=== PATIENT | female | born 1935 | race Caucasian/White ===

== ENCOUNTER 2017-11-21 16:31 | Inpatient (IN) ==
[2017-11-21] MEDS ORDERED: ORPHENADRINE 60 MG/2 ML VIAL IV STA (17:05)
[2017-11-21] MEDS ORDERED: ONDANSETRON 4 MG/2 ML VIAL IV STA (17:05)
[2017-11-21] MEDS ORDERED: KETOROLAC 30 MG/1 ML VIAL IV STA (17:05)
[2017-11-21 17:55] LABS: Basophils # 0.1 10*3/uL (0.0-0.2); Basophils % 0.5 % (0.0-0.8); Eosinophils # 0.1 10*3/uL (0.0-0.87); Eosinophils % 0.5 % (0.00-10.9); Hematocrit 34.4 VOL% (35.7-47.0); Hemoglobin 11.7 GM/DL (12.0-16.0); Immature Granulocytes % 0.4 %; Immature Granulocytes Absolute 0.06 #; Lymphocytes # 1.8 10*3/uL (1.4-4.0); Lymphocytes % 11.9 % (21.3-54.2); Mean Corpuscular Hemoglobin 31 PG (27-34); Mean Corpuscular Volume 90.1 FL (87-102); Mean Platelet Volume 9.5 FL (9.6-12.0); Monocytes # 0.6 10*3/uL (0.11-0.8); Monocytes % 4.2 % (1.7-12.7); Neutrophils # 12.4 10*3/uL (1.4-7.4); Neutrophils % 82.5 % (38.7-73.9); Platelet Count 235 T/CUMM (130-400); Red Blood Count 3.82 MC/CUMM (3.8-5.5); Red Cell Distribution Width 13.2 % (9.3-17.3)
[2017-11-21 18:08] LABS: PT Patient Result 10.2 SECS; Partial Thromboplastin Time 22.9 SECS (0-40)
[2017-11-21 18:34] LABS: Alanine Aminotransferase 54 U/L (13-56); Albumin 3.5 G/DL (3.4-5.0); Alkaline Phosphatase 87 U/L (45-117); Aspartate Amino Transferase 141 U/L (0-37); Blood Urea Nitrogen 18 MG/DL (7-18); CKMB % 4.6 %; Calcium 8.6 MG/DL (8.5-10.1); Glucose 146 MG/DL (74-106); Potassium 3.7 MMOL/L (3.5-5.1); Sodium 136 MMOL/L (136-145); Troponin I Only < 0.015 NG/ML (0.00-0.045)
[2017-11-21 19:01] LABS: Apearance,Urine CLEAR (Clear); Bilirubin,Urine Negative (Negative); Blood, Urine Small mg/dL (Negative); Glucose,Urine (UA) Negative (Negative); Ketones,Urine Negative (Negative); Mucus,Urine Occasional /LPF (Occasional); Nitrite,Urine Negative (Negative); Protein,Urine Negative; RBC,Urine 6 /HPF (0-4); Urine Color Yellow (Yellow); Urine Specific Gravity 1.015 (1.001-1.035); WBC,Urine <1 /HPF (0-6)
[2017-11-21] MEDS ORDERED: ONDANSETRON 4 MG/2 ML VIAL IV PRN (19:56)
[2017-11-21] MEDS ORDERED: ZALEPLON 5 MG CAPSULE PO PRN (19:56)
[2017-11-21] MEDS ORDERED: MORPHINE 4 MG/1 ML VIAL IV PRN (19:56)
[2017-11-21] MEDS ORDERED: BISACODYL 5 MG TABLET PO PRN (19:56)
[2017-11-21] MEDS ORDERED: FUROSEMIDE 40 MG/4 ML VIAL IV ONE (19:57)
[2017-11-21] MEDS ORDERED: KETOROLAC 30 MG/1 ML VIAL IV PRN (20:00)
[2017-11-21] MEDS ORDERED: ALBUTEROL/IPRATROPIUM 3 ML NEB RESP TX PRN (20:03)
[2017-11-21] MEDS ORDERED: METOCLOPRAMIDE 10 MG/2 ML VIAL IV STA (20:19)
[2017-11-21] MEDS ORDERED: METOCLOPRAMIDE 10 MG/2 ML VIAL IV PRN (20:19)
[2017-11-21] MEDS: ENOXAPARIN 40 MG/0.4 ML SYRINGE SUBCUT SCH (20:30)
[2017-11-21 22:52] LABS: Troponin I Only < 0.015 NG/ML (0.00-0.045)
[2017-11-22 02:27] LABS: Troponin I Only 0.033 NG/ML (0.00-0.045)
[2017-11-22 02:34] LABS: Calcium 8.3 MG/DL (8.5-10.1); Risk Ratio 5.12; Thyroid Stimulating Hormone 1.98 uIU/ml (0.358-3.74); VLDL CHOLESTEROL 18.6 MG/DL
[2017-11-22] MEDS ORDERED: MAGNESIUM SULF RIDER 2 GM in PREMIX 1 EACH IV PRN (02:45)
[2017-11-22] MEDS ORDERED: MAGNESIUM SULF RIDER 4 GM in PREMIX 1 EACH IV PRN (02:45)
[2017-11-22] MEDS: POTASSIUM CHLORIDE 20 MEQ TABLET PO PRN ×3 (03:48→08:25)
[2017-11-22] MEDS: PANTOPRAZOLE 40 MG TABLET PO SCH (08:25)
[2017-11-22] MEDS: ATENOLOL 50 MG TABLET PO SCH (08:26)
[2017-11-22] MEDS ORDERED: FUROSEMIDE 20 MG/2 ML VIAL IV SCH (09:00)
[2017-11-22 09:06] LABS: Troponin I Only 0.036 NG/ML (0.00-0.045)
[2017-11-22] MEDS ORDERED: ASPIRIN 325 MG TABLET PO ONE (09:35)
[2017-11-22] MEDS ORDERED: MAGNESIUM SULFATE 1 GM/2 ML VIAL IM ONE (09:37)
[2017-11-22] MEDS: ATORVASTATIN 80 MG TABLET PO SCH (10:50)
[2017-11-22] MEDS: POTASSIUM CHLORIDE 20 MEQ/15 ML UDCUP PO SCH ×3 (10:50→18:03)
[2017-11-22] MEDS: CITALOPRAM 20 MG TABLET PO SCH (11:05)
[2017-11-22] MEDS: CEFUROXIME INJ 1,500 MG in SYRINGE 1 EACH IV SCH (16:06)
[2017-11-22] MEDS: ENOXAPARIN 40 MG/0.4 ML SYRINGE SUBCUT SCH (20:27)
[2017-11-23] MEDS: CEFUROXIME INJ 1,500 MG in SYRINGE 1 EACH IV SCH ×2 (02:17→18:00)
[2017-11-23 05:34] LABS: Calcium 8.5 MG/DL (8.5-10.1); Osmolality,Calculated 270.5 MOS/KG (273-304); Potassium 5.7 MMOL/L (3.5-5.1)
[2017-11-23] MEDS: ATORVASTATIN 80 MG TABLET PO SCH (09:56)
[2017-11-23] MEDS: ATENOLOL 50 MG TABLET PO SCH (09:57)
[2017-11-23] MEDS: PANTOPRAZOLE 40 MG TABLET PO SCH (09:57)
[2017-11-23] MEDS: ASPIRIN EC 81 MG TABLET PO SCH (09:57)
[2017-11-23] MEDS: CITALOPRAM 20 MG TABLET PO SCH (18:04)
[2017-11-23] MEDS: SODIUM CHLORIDE 0.9% 1,000 ML IV SCH ×2 (20:44→22:45)
[2017-11-23] MEDS: ENOXAPARIN 40 MG/0.4 ML SYRINGE SUBCUT SCH (20:44)
[2017-11-24] MEDS: CEFUROXIME INJ 1,500 MG in SYRINGE 1 EACH IV SCH ×2 (02:47→15:32)
[2017-11-24 06:12] LABS: Calcium 7.9 MG/DL (8.5-10.1); Osmolality,Calculated 271.2 MOS/KG (273-304); Potassium 4.8 MMOL/L (3.5-5.1)
[2017-11-24] MEDS: ATENOLOL 50 MG TABLET PO SCH (10:16)
[2017-11-24] MEDS: ASPIRIN EC 81 MG TABLET PO SCH (10:16)
[2017-11-24] MEDS: ATORVASTATIN 80 MG TABLET PO SCH (10:16)
[2017-11-24] MEDS: PANTOPRAZOLE 40 MG TABLET PO SCH (10:16)
[2017-11-24] MEDS: CITALOPRAM 20 MG TABLET PO SCH (15:35)
[2017-11-24] MEDS: ENOXAPARIN 40 MG/0.4 ML SYRINGE SUBCUT SCH (21:19)
[2017-11-25] MEDS: CEFUROXIME INJ 1,500 MG in SYRINGE 1 EACH IV SCH ×2 (03:32→15:22)
[2017-11-25 03:55] LABS: Basophils % 0.4 % (0.0-0.8); Eosinophils # 0.2 10*3/uL (0.0-0.87); Eosinophils % 2.1 % (0.00-10.9); Hematocrit 33.2 VOL% (35.7-47.0); Hemoglobin 10.7 GM/DL (12.0-16.0); Immature Granulocytes % 0.4 %; Immature Granulocytes Absolute 0.03 #; Lymphocytes # 0.7 10*3/uL (1.4-4.0); Lymphocytes % 8.9 % (21.3-54.2); Mean Corpuscular HGB Conc 32.2 GM/DL (32-36); Mean Corpuscular Hemoglobin 30 PG (27-34); Mean Corpuscular Volume 93.5 FL (87-102); Mean Platelet Volume 10.5 FL (9.6-12.0); Monocytes # 0.4 10*3/uL (0.11-0.8); Monocytes % 5.2 % (1.7-12.7); Platelet Count 186 T/CUMM (130-400); Red Blood Count 3.55 MC/CUMM (3.8-5.5); Red Cell Distribution Width 13.7 % (9.3-17.3); White Blood Count 7.3 T/CUMM (4-12)
[2017-11-25 05:07] LABS: Band Neutrophils 1 % (0-10); Eosinophils 3 % (0-10); Lymphocytes 7 % (20-55); Ovalocytes Slight; Platelet Estimate Normal; Segmented Neutrophils 87 % (50-85); Total Cells Counted 100
[2017-11-25] MEDS: ATENOLOL 50 MG TABLET PO SCH (10:22)
[2017-11-25] MEDS: ASPIRIN EC 81 MG TABLET PO SCH (10:23)
[2017-11-25] MEDS: ATORVASTATIN 80 MG TABLET PO SCH (10:23)
[2017-11-25] MEDS: PANTOPRAZOLE 40 MG TABLET PO SCH (10:24)
[2017-11-25] MEDS: CITALOPRAM 20 MG TABLET PO SCH (13:00)
[2017-11-25] MEDS: ENOXAPARIN 40 MG/0.4 ML SYRINGE SUBCUT SCH (20:43)
[2017-11-26] MEDS: CEFUROXIME INJ 1,500 MG in SYRINGE 1 EACH IV SCH (03:56)
[2017-11-26] MEDS: ASPIRIN EC 81 MG TABLET PO SCH (08:50)
[2017-11-26] MEDS: ATENOLOL 50 MG TABLET PO SCH (08:50)
[2017-11-26] MEDS: PANTOPRAZOLE 40 MG TABLET PO SCH (08:50)
[2017-11-26] MEDS: ATORVASTATIN 80 MG TABLET PO SCH (08:50)
[2017-11-26] MEDS: CITALOPRAM 20 MG TABLET PO SCH (12:27)
[2017-11-26] MEDS: AMPICILLIN/SULBACTAM 3,000 MG in SODIUM CHLORIDE 0.9% 100 ML IV SCH ×2 (14:08→20:17)
[2017-11-26] MEDS: ENOXAPARIN 40 MG/0.4 ML SYRINGE SUBCUT SCH (20:17)
[2017-11-26] MEDS: ACETAMINOPHEN 325 MG TABLET PO PRN (23:18)
[2017-11-27] MEDS: AMPICILLIN/SULBACTAM 3,000 MG in SODIUM CHLORIDE 0.9% 100 ML IV SCH ×3 (02:00→14:46)
[2017-11-27 05:01] LABS: Basophils # 0.1 10*3/uL (0.0-0.2); Basophils % 0.8 % (0.0-0.8); Eosinophils # 0.2 10*3/uL (0.0-0.87); Eosinophils % 2.3 % (0.00-10.9); Hematocrit 32.4 VOL% (35.7-47.0); Immature Granulocytes % 0.6 %; Immature Granulocytes Absolute 0.04 #; Lymphocytes # 1.5 10*3/uL (1.4-4.0); Lymphocytes % 21.3 % (21.3-54.2); Mean Corpuscular Hemoglobin 31 PG (27-34); Mean Platelet Volume 10.1 FL (9.6-12.0); Monocytes # 0.5 10*3/uL (0.11-0.8); Monocytes % 7.6 % (1.7-12.7); Neutrophils # 4.8 10*3/uL (1.4-7.4); Neutrophils % 67.4 % (38.7-73.9); Platelet Count 202 T/CUMM (130-400); Red Cell Distribution Width 13.5 % (9.3-17.3); White Blood Count 7.1 T/CUMM (4-12)
[2017-11-27 05:29] LABS: Calcium 8.8 MG/DL (8.5-10.1); Potassium 3.9 MMOL/L (3.5-5.1)
[2017-11-27 05:30] LABS: Band Neutrophils 3 % (0-10); Eosinophils 1 % (0-10); Lymphocytes 22 % (20-55); Segmented Neutrophils 70 % (50-85); Total Cells Counted 100
[2017-11-27 05:31] LABS: Hypochromasia Slight; Microcytosis Slight; Ovalocytes Slight
[2017-11-27 05:38] LABS: Atypical Lymphocytes Few
[2017-11-27] MEDS: ATENOLOL 50 MG TABLET PO SCH (08:36)
[2017-11-27] MEDS: ATORVASTATIN 80 MG TABLET PO SCH (08:36)
[2017-11-27] MEDS: ASPIRIN EC 81 MG TABLET PO SCH (08:36)
[2017-11-27] MEDS: PANTOPRAZOLE 40 MG TABLET PO SCH (08:36)
[2017-11-27] MEDS ORDERED: MAGNESIUM SULF RIDER 4 GM in PREMIX 1 EACH IV PRN (11:05)
[2017-11-27] MEDS ORDERED: MAGNESIUM SULF RIDER 2 GM in PREMIX 1 EACH IV PRN (11:05)
[2017-11-27] MEDS: CITALOPRAM 20 MG TABLET PO SCH (11:24)
[2017-11-27] MEDS: POTASSIUM CHLORIDE 20 MEQ TABLET PO PRN (12:21)
[2017-11-27] MEDS: ACETAMINOPHEN 325 MG TABLET PO PRN (18:59)
[2017-11-27] MEDS: cefTRIAXone 2,000 MG in SYRINGE 1 EACH IV SCH (19:00)
[2017-11-27] MEDS: ENOXAPARIN 40 MG/0.4 ML SYRINGE SUBCUT SCH (21:40)
[2017-11-28 04:58] LABS: Basophils # 0.1 10*3/uL (0.0-0.2); Basophils % 0.7 % (0.0-0.8); Eosinophils # 0.2 10*3/uL (0.0-0.87); Eosinophils % 2.4 % (0.00-10.9); Hematocrit 33.1 VOL% (35.7-47.0); Hemoglobin 11.2 GM/DL (12.0-16.0); Immature Granulocytes % 0.9 %; Immature Granulocytes Absolute 0.07 #; Lymphocytes # 1.9 10*3/uL (1.4-4.0); Lymphocytes % 23.2 % (21.3-54.2); Mean Corpuscular HGB Conc 33.8 GM/DL (32-36); Mean Corpuscular Hemoglobin 31 PG (27-34); Mean Corpuscular Volume 90.7 FL (87-102); Mean Platelet Volume 10.4 FL (9.6-12.0); Monocytes # 0.7 10*3/uL (0.11-0.8); Monocytes % 8.1 % (1.7-12.7); Neutrophils # 5.3 10*3/uL (1.4-7.4); Neutrophils % 64.7 % (38.7-73.9); Platelet Count 237 T/CUMM (130-400); Red Blood Count 3.65 MC/CUMM (3.8-5.5); Red Cell Distribution Width 13.5 % (9.3-17.3); White Blood Count 8.2 T/CUMM (4-12)
[2017-11-28 05:34] LABS: Hypochromasia Slight; Microcytosis Slight
[2017-11-28 05:36] LABS: Calcium 8.8 MG/DL (8.5-10.1); Potassium 3.9 MMOL/L (3.5-5.1)
[2017-11-28] MEDS: ACETAMINOPHEN 325 MG TABLET PO PRN (10:28)
[2017-11-28] MEDS: ATENOLOL 50 MG TABLET PO SCH (10:29)
[2017-11-28] MEDS: ATORVASTATIN 80 MG TABLET PO SCH (10:29)
[2017-11-28] MEDS: ASPIRIN EC 81 MG TABLET PO SCH (10:29)
[2017-11-28] MEDS: PANTOPRAZOLE 40 MG TABLET PO SCH (10:30)
[2017-11-28] MEDS: CITALOPRAM 20 MG TABLET PO SCH (13:20)
[2017-11-28] MEDS: cefTRIAXone 2,000 MG in SYRINGE 1 EACH IV SCH (18:25)
[2017-11-28] MEDS: ENOXAPARIN 40 MG/0.4 ML SYRINGE SUBCUT SCH (21:28)
[2017-11-29] MEDS: ACETAMINOPHEN 325 MG TABLET PO PRN ×2 (09:03→17:45)
[2017-11-29] MEDS: ASPIRIN EC 81 MG TABLET PO SCH (09:04)
[2017-11-29] MEDS: ATORVASTATIN 80 MG TABLET PO SCH (09:04)
[2017-11-29] MEDS: PANTOPRAZOLE 40 MG TABLET PO SCH (09:05)
[2017-11-29] MEDS: POTASSIUM CHLORIDE 20 MEQ TABLET PO PRN (09:05)
[2017-11-29] MEDS: ATENOLOL 50 MG TABLET PO SCH (09:05)
[2017-11-29] MEDS: CITALOPRAM 20 MG TABLET PO SCH (12:40)
[2017-11-29] MEDS: cefTRIAXone 2,000 MG in SYRINGE 1 EACH IV SCH (17:19)
[2017-11-29] MEDS: ENOXAPARIN 40 MG/0.4 ML SYRINGE SUBCUT SCH (21:43)
[2017-11-30] MEDS: ATORVASTATIN 80 MG TABLET PO SCH (10:25)
[2017-11-30] MEDS: ATENOLOL 50 MG TABLET PO SCH (10:26)
[2017-11-30] MEDS: ASPIRIN EC 81 MG TABLET PO SCH (10:26)
[2017-11-30] MEDS: PANTOPRAZOLE 40 MG TABLET PO SCH (10:26)
[2017-11-30 12:26] VITALS: BP 130/68
== END 2017-11-30 12:20 | disposition swing bed (61) | DRG 187 ==
LOC: N.ED 16:31 → N.EDINP 19:56 → SUATTDRO 19:56 → N.TELES 21:43
PROVIDERS: ADMIT Internal Medicine; ATTEND Internal Medicine

== ENCOUNTER 2018-06-20 00:56 | Inpatient (IN) ==
[2018-06-20] MEDS ORDERED: ONDANSETRON 4 MG/2 ML VIAL IV STA (01:13)
[2018-06-20] MEDS ORDERED: ASPIRIN 325 MG TABLET PO STA (01:13)
[2018-06-20] MEDS ORDERED: ENOXAPARIN 100 MG/ML SYRINGE SUBCUT STA (01:13)
[2018-06-20] MEDS ORDERED: DILTIAZEM 50 MG/10 ML VIAL IV STA (01:13)
[2018-06-20] MEDS ORDERED: NITROGLYCERIN 2% OINT 1 INCH/GM PACK TOP STA (01:13)
[2018-06-20] MEDS ORDERED: DILTIAZEM 25 MG/5 ML VIAL IV ONE (01:24)
[2018-06-20 01:36] LABS: Basophils % 0.5 % (0.0-0.8); Eosinophils # 0.1 10*3/uL (0.0-0.87); Eosinophils % 1.9 % (0.00-10.9); Hematocrit 35.5 VOL% (35.7-47.0); Hemoglobin 11.4 GM/DL (12.0-16.0); Immature Granulocytes % 0.1 %; Immature Granulocytes Absolute 0.01 #; Lymphocytes # 2.6 10*3/uL (1.4-4.0); Lymphocytes % 34.8 % (21.3-54.2); Mean Corpuscular HGB Conc 32.1 GM/DL (32-36); Mean Corpuscular Hemoglobin 29 PG (27-34); Mean Corpuscular Volume 91.5 FL (87-102); Mean Platelet Volume 10.2 FL (9.6-12.0); Monocytes # 0.5 10*3/uL (0.11-0.8); Monocytes % 6.4 % (1.7-12.7); Neutrophils # 4.2 10*3/uL (1.4-7.4); Neutrophils % 56.3 % (38.7-73.9); Platelet Count 214 T/CUMM (130-400); Red Blood Count 3.88 MC/CUMM (3.8-5.5); Red Cell Distribution Width 14.1 % (9.3-17.3); White Blood Count 7.5 T/CUMM (4-12)
[2018-06-20 01:40] LABS: Apearance,Urine CLEAR (Clear); Bilirubin,Urine Negative (Negative); Blood, Urine Small mg/dL (Negative); Glucose,Urine (UA) Negative (Negative); Ketones,Urine Negative (Negative); Nitrite,Urine Negative (Negative); Protein,Urine Negative; RBC,Urine 2 /HPF (0-4); Squamous Epithelial Cell,Urine Occasional /HPF (0-10); Urine Color Colorless (Yellow); Urine Specific Gravity 1.008 (1.001-1.035); Urine Urobilinogen < 2.0 EU/DL (0.2-1.0); WBC,Urine 1 /HPF (0-6)
[2018-06-20] MEDS: dilTIAZem Drip 125 MG/125 ML PREMIX IV SCH (01:43)
[2018-06-20 01:46] LABS: INR 0.9
[2018-06-20 02:20] LABS: Alanine Aminotransferase 23 U/L (13-56); Albumin 3.6 G/DL (3.4-5.0); Alkaline Phosphatase 60 U/L (45-117); Aspartate Amino Transferase 21 U/L (0-37); Bilirubin,Total < 0.39 MG/DL (0.2-1.0); Blood Urea Nitrogen 24 MG/DL (7-18); Calcium 9.2 MG/DL (8.5-10.1); Glucose 99 MG/DL (74-106); Osmolality,Calculated 280.5 MOS/KG (273-304); Potassium 3.8 MMOL/L (3.5-5.1); Sodium 139 MMOL/L (136-145); Total Protein 7.4 G/DL (6.4-8.3)
[2018-06-20] MEDS ORDERED: MORPHINE 4 MG/1 ML VIAL IV PRN (02:38)
[2018-06-20] MEDS ORDERED: diphenhydrAMINE CAP 25 MG CAPSULE PO PRN (02:38)
[2018-06-20] MEDS ORDERED: ONDANSETRON 4 MG/2 ML VIAL IV PRN (02:38)
[2018-06-20] MEDS ORDERED: ACETAMINOPHEN 325 MG TABLET PO PRN (02:38)
[2018-06-20] MEDS ORDERED: POTASSIUM CHLORIDE 20 MEQ TABLET PO PRN (02:38)
[2018-06-20] MEDS ORDERED: MAGNESIUM SULF RIDER 4 GM in PREMIX 1 EACH IV PRN (02:38)
[2018-06-20] MEDS ORDERED: MAGNESIUM SULF RIDER 2 GM in PREMIX 1 EACH IV PRN (02:38)
[2018-06-20] MEDS ORDERED: dilTIAZem Drip 125 MG/125 ML PREMIX IV SCH (03:00)
[2018-06-20 05:01] LABS: Calcium 8.9 MG/DL (8.5-10.1); Osmolality,Calculated 279.5 MOS/KG (273-304); Potassium 3.6 MMOL/L (3.5-5.1)
[2018-06-20] MEDS: ATENOLOL 50 MG TABLET PO SCH (09:32)
[2018-06-20] MEDS: ASPIRIN EC 81 MG TABLET PO SCH (09:32)
[2018-06-20] MEDS: PANTOPRAZOLE 40 MG TABLET PO SCH (10:24)
[2018-06-20] MEDS: CITALOPRAM 20 MG TABLET PO SCH (11:38)
[2018-06-20] MEDS: ENOXAPARIN 80 MG/0.8 ML SYRINGE SUBCUT SCH ×2 (14:16→22:15)
[2018-06-21 04:14] LABS: Basophils # 0.1 10*3/uL (0.0-0.2); Basophils % 0.8 % (0.0-0.8); Eosinophils # 0.1 10*3/uL (0.0-0.87); Eosinophils % 2.1 % (0.00-10.9); Hematocrit 32.3 VOL% (35.7-47.0); Hemoglobin 10.4 GM/DL (12.0-16.0); Immature Granulocytes % 0.2 %; Immature Granulocytes Absolute 0.01 #; Lymphocytes # 2.6 10*3/uL (1.4-4.0); Mean Corpuscular HGB Conc 32.2 GM/DL (32-36); Mean Corpuscular Hemoglobin 30 PG (27-34); Mean Platelet Volume 10.2 FL (9.6-12.0); Monocytes # 0.4 10*3/uL (0.11-0.8); Monocytes % 5.5 % (1.7-12.7); Neutrophils # 3.4 10*3/uL (1.4-7.4); Neutrophils % 52.4 % (38.7-73.9); Platelet Count 176 T/CUMM (130-400); Red Blood Count 3.51 MC/CUMM (3.8-5.5); White Blood Count 6.5 T/CUMM (4-12)
[2018-06-21 04:50] LABS: Osmolality,Calculated 278.5 MOS/KG (273-304); Potassium 3.9 MMOL/L (3.5-5.1)
[2018-06-21] MEDS: dilTIAZem Drip 125 MG/125 ML PREMIX IV SCH (05:08)
[2018-06-21] MEDS ORDERED: ENOXAPARIN 30 MG/0.3 ML SYRINGE SUBCUT SCH (07:30)
[2018-06-21] MEDS ORDERED: ASPIRIN 325 MG TABLET PO SCH (09:00)
[2018-06-21] MEDS ORDERED: ENOXAPARIN 40 MG/0.4 ML SYRINGE SUBCUT SCH (09:00)
[2018-06-21] MEDS: ASPIRIN EC 81 MG TABLET PO SCH (10:15)
[2018-06-21] MEDS: ATENOLOL 50 MG TABLET PO SCH (10:15)
[2018-06-21] MEDS: PANTOPRAZOLE 40 MG TABLET PO SCH (10:15)
[2018-06-21 12:30] VITALS: BP 153/76
[2018-06-21] MEDS: CITALOPRAM 20 MG TABLET PO SCH (13:25)
[2018-06-21] MEDS ORDERED: DILTIAZEM CD 180 MG CAPSULE PO SCH (21:00)
== END 2018-06-21 14:14 | disposition home health service (06) | DRG 310 ==
LOC: EDBD → EDUNIT# → SUATTDRO → N.ED 00:56 → N.EDINP 02:38 → N.2W 07:49 → N.TELES 12:53
PROVIDERS: ADMIT Internal Medicine; ATTEND Internal Medicine

== ENCOUNTER 2020-04-28 19:05 | Inpatient (IN) ==
[2020-04-28] MEDS ORDERED: DICYCLOMINE 20 MG/2 ML AMP IM ONE (19:36)
[2020-04-28] MEDS ORDERED: ONDANSETRON 4 MG/2 ML VIAL IV STA (19:36)
[2020-04-28] MEDS ORDERED: SODIUM CHLORIDE 0.9% 500 ML IV STA (19:36)
[2020-04-28] MEDS ORDERED: PANTOPRAZOLE 40 MG VIAL IV STA (19:36)
[2020-04-28 19:48] LABS: Basophils # 0.1 10*3/uL (0.0-0.2); Basophils % 0.5 % (0.0-0.8); Eosinophils # 0.1 10*3/uL (0.0-0.87); Eosinophils % 0.9 % (0.00-10.9); Hematocrit 35.4 VOL% (35.7-47.0); Hemoglobin 11.5 GM/DL (12.0-16.0); Immature Granulocytes % 0.4 %; Immature Granulocytes Absolute 0.04 #; Lymphocytes # 1.6 10*3/uL (1.4-4.0); Lymphocytes % 14.9 % (21.3-54.2); Mean Corpuscular HGB Conc 32.5 GM/DL (32-36); Mean Corpuscular Volume 89.2 FL (87-102); Mean Platelet Volume 10.2 FL (9.6-12.0); Monocytes % 4.9 % (1.7-12.7); Neutrophils % 78.4 % (38.7-73.9); Platelet Count 260 T/CUMM (130-400); Red Blood Count 3.97 MC/CUMM (3.8-5.5); Red Cell Distribution Width 14.1 % (9.3-17.3); White Blood Count 10.4 T/CUMM (4-12)
[2020-04-28 19:56] LABS: Alanine Aminotransferase 33 U/L (13-56); Albumin 3.4 G/DL (3.4-5.0); Alkaline Phosphatase 89 U/L (45-117); Amylase 29 U/L (25-115); Aspartate Amino Transferase 97 U/L (0-37); Bilirubin,Total < 0.39 MG/DL (0.2-1.0); Blood Urea Nitrogen 21 MG/DL (7-18); Calcium 8.6 MG/DL (8.5-10.1); Estimated Glom Filtration Rate 52 ML/MIN; Glucose 114 MG/DL (74-106); Osmolality,Calculated 278.7 MOS/KG (273-304); Total Protein 6.5 G/DL (6.4-8.3)
[2020-04-28] MEDS ORDERED: MAGNESIUM SULF RIDER 2 GM in PREMIX 1 EACH IV STA (19:58)
[2020-04-28 20:18] LABS: Bilirubin,Urine Negative (Negative); Blood, Urine Negative (Negative); Glucose,Urine (UA) Negative (Negative); Hyaline Casts,Urine 5 /LPF (0-3); Ketones,Urine Negative (Negative); Mucus,Urine Many /LPF (Occasional); Nitrite,Urine Negative (Negative); Protein,Urine 30 MG/DL; RBC,Urine 6 /HPF (0-4); Urine Appearance CLEAR (Clear); Urine Color Amber (Yellow); Urine Specific Gravity 1.029 (1.001-1.035); WBC,Urine 1 /HPF (0-6)
[2020-04-28] MEDS ORDERED: BENZOCAINE/BUTAMBEN/TETRACAINE SPRAY 20 GM CAN TOP ONE (22:38)
[2020-04-28] MEDS ORDERED: HYDROmorphone 2 MG/1 ML VIAL IV PRN (23:59)
[2020-04-28] MEDS ORDERED: SODIUM CHLORIDE 0.9% 1,000 ML IV SCH (23:59)
[2020-04-28] MEDS ORDERED: ONDANSETRON 4 MG/2 ML VIAL IV PRN (23:59)
[2020-04-28] MEDS ORDERED: ACETAMINOPHEN 325 MG TABLET PO PRN (23:59)
[2020-04-29] MEDS: PIPERACILLIN/TAZOBACTAM 3,375 MG in SODIUM CHLORIDE 0.9% 100 ML IV SCH ×3 (01:59→16:25)
[2020-04-29 06:02] LABS: Basophils % 0.3 % (0.0-0.8); Eosinophils # 0.1 10*3/uL (0.0-0.87); Eosinophils % 0.8 % (0.00-10.9); Hematocrit 32.6 VOL% (35.7-47.0); Hemoglobin 10.7 GM/DL (12.0-16.0); Immature Granulocytes % 0.3 %; Immature Granulocytes Absolute 0.04 #; Lymphocytes % 7.9 % (21.3-54.2); Mean Corpuscular HGB Conc 32.8 GM/DL (32-36); Mean Corpuscular Volume 89.3 FL (87-102); Mean Platelet Volume 10.2 FL (9.6-12.0); Neutrophils % 85.7 % (38.7-73.9); Platelet Count 230 T/CUMM (130-400); Red Blood Count 3.65 MC/CUMM (3.8-5.5); Red Cell Distribution Width 14.1 % (9.3-17.3); White Blood Count 12.1 T/CUMM (4-12)
[2020-04-29 06:43] LABS: Bilirubin,Total 0.8 MG/DL (0.2-1.0); Calcium 8.7 MG/DL (8.5-10.1); Osmolality,Calculated 275.8 MOS/KG (273-304); Total Protein 6.3 G/DL (6.4-8.3)
[2020-04-29] MEDS ORDERED: ONDANSETRON 4 MG TABLET PO PRN (06:59)
[2020-04-29] MEDS: LORATADINE 10 MG TABLET PO SCH (08:34)
[2020-04-29] MEDS: PANTOPRAZOLE 40 MG TABLET PO SCH (08:34)
[2020-04-29] MEDS: atenoloL 25 MG TABLET PO SCH (08:35)
[2020-04-29] MEDS ORDERED: NON-FORMULARY MEDICATION (Omeprazole 20 MG capsule,delayed release(DR/EC)) PO SCH (09:00)
[2020-04-29] MEDS: CITALOPRAM 20 MG TABLET PO SCH (11:25)
[2020-04-29] MEDS ORDERED: LACTATED RINGERS 1,000 ML IV SCH (12:00)
[2020-04-29] MEDS ORDERED: DILTIAZEM CD 180 MG CAPSULE PO SCH (21:00)
[2020-04-30] MEDS: PIPERACILLIN/TAZOBACTAM 3,375 MG in SODIUM CHLORIDE 0.9% 100 ML IV SCH ×2 (01:10→10:04)
[2020-04-30 06:16] LABS: Basophils % 0.5 % (0.0-0.8); Eosinophils # 0.3 10*3/uL (0.0-0.87); Eosinophils % 3.1 % (0.00-10.9); Hematocrit 32.4 VOL% (35.7-47.0); Hemoglobin 10.4 GM/DL (12.0-16.0); Immature Granulocytes % 0.2 %; Immature Granulocytes Absolute 0.02 #; Lymphocytes # 1.4 10*3/uL (1.4-4.0); Lymphocytes % 17.5 % (21.3-54.2); Mean Corpuscular HGB Conc 32.1 GM/DL (32-36); Mean Platelet Volume 10.1 FL (9.6-12.0); Monocytes % 6.2 % (1.7-12.7); Neutrophils % 72.5 % (38.7-73.9); Platelet Count 224 T/CUMM (130-400); Red Blood Count 3.56 MC/CUMM (3.8-5.5); White Blood Count 8.1 T/CUMM (4-12)
[2020-04-30 06:23] LABS: Calcium 9.1 MG/DL (8.5-10.1); Osmolality,Calculated 283.1 MOS/KG (273-304)
[2020-04-30] MEDS: atenoloL 25 MG TABLET PO SCH (09:50)
[2020-04-30] MEDS: PANTOPRAZOLE 40 MG TABLET PO SCH (09:51)
[2020-04-30] MEDS: LORATADINE 10 MG TABLET PO SCH (09:51)
[2020-04-30] MEDS: CITALOPRAM 20 MG TABLET PO SCH (12:42)
[2020-04-30 16:42] VITALS: BP 149/64
== END 2020-04-30 17:12 | disposition home health service (06) | DRG 390 ==
LOC: EDBD → EDUNIT# → N.EDINP 19:05 → N.ED 19:05 → N.3E 23:55
PROVIDERS: ADMIT Surgery; ATTEND Surgery